=== PATIENT | male | born 1990 | race African-American/Black ===

== ENCOUNTER 2017-03-27 16:22 | Emergency (ER) | payer BC ==
[2017-03-27 16:43] VITALS: BP 129/67; PULSE 63; RESP 18; TEMP 97.8
[2017-03-27] MEDS ORDERED: ACETAMINOPHEN TAB 325 MG TAB PO STA (16:51)
[2017-03-27] MEDS ORDERED: IBUPROFEN 600 MG TAB PO STA (16:51)
--- NOTE | 2017-03-27 17:13 | XR ---
EXAMINATION TYPE: XR ankle complete LT DATE OF EXAM: 03/27/2017 CLINICAL HISTORY: Left ankle pain TECHNIQUE: Frontal, lateral and oblique images of the left ankle are obtained. COMPARISON: None. FINDINGS: There is no acute fracture/dislocation evident in the left ankle. The ankle mortise appea rs within normal limits. Mild focal soft tissue swelling is seen over the lateral malleolus. IMPRESSION: Mild soft tissue swelling over the lateral malleolus with no acute fracture or dislocatio n in the left ankle.
--- NOTE | 2017-03-27 17:22 | ED ---
Lower Extremity Injury HPI - General Chief Complaint: Extremity Injury, Lower Stated Complaint: Left Foot Injury Time Seen by Provider: 03/27/17 16:45 Source: patient Mode of arrival: wheelchair Limitations: no limitations - History of Present Illness Initial Comments: 26-year-old male patient presents to the emergency department today for evaluation of left ankle pain and swelling. Patient states that this started after a slip and fall accident yesterday. He states that it hurts most when he comes to bear weight on the ankle. He is complaining of pain at the left lateral aspect of the ankle just anterior to the lateral malleolus. He denies any numbness or tingling to the foot or leg. He denies hitting his head or losing consciousness during the fall. Denies any other injuries. Patient denies any headache, neck pain, back pain, chest pain, shortness of breath, dizziness, weakness, abdominal pain, nausea, vomiting, or difficulties with bowel movements or urination. - Related Data Previous Rx's Medication Instructions Recorded Ibuprofen [Motrin] 600 mg PO Q8HR PRN #30 tab 03/27/17 Allergies Allergy/AdvReac Type Severity Reaction Status Date / Time No Known Allergies Allergy Unverified 03/27/17 16:43 Review of Systems ROS Statement: Those systems with pertinent positive or pertinent negative responses have been documented in the HPI. ROS Other: All systems not noted in ROS Statement are negative. Past Medical History Past Medical History: No Reported History History of Any Multi-Drug Resistant Organisms: None Reported Additional Past Surgical History / Comment(s): Sx on nose Smoking Status: Current every day smoker Past Alcohol Use History: None Reported General Exam Limitations: no limitations General appearance: alert, in no apparent distress, other (This is a well- developed, well-nourished adult male patient in no acute distress. Vital signs upon presentation were temperature 97.8F, pulse 63, respirations 18, blood pressure 129/67, pulse ox 98% on room air.) Head exam: Present: atraumatic, normocephalic, normal inspection Eye exam: Present: normal appearance, PERRL, EOMI. Absent: scleral icterus, conjunctival injection, periorbital swelling ENT exam: Present: normal exam, normal oropharynx, mucous membranes moist Neck exam: Present: normal inspection, full ROM, other (Nontender, no step-off, no deformity to firm midline palpation of the posterior cervical spine. Full range of motion without pain or limitation.). Absent: tenderness, meningismus, lymphadenopathy Respiratory exam: Present: normal lung sounds bilaterally. Absent: respiratory distress, wheezes, rales, rhonchi, stridor Cardiovascular Exam: Present: regular rate, normal rhythm, normal heart sounds. Absent: systolic murmur, diastolic murmur, rubs, gallop, clicks GI/Abdominal exam: Present: soft, normal bowel sounds. Absent: distended, tenderness, guarding, rebound, rigid Extremities exam: Present: full ROM, tenderness (Tenderness over the lateral aspect of the left ankle, just anterior to the left lateral malleolus. No fifth metatarsal tenderness noted.), normal capillary refill, other (There is some minor swelling surrounding the left ankle. Skin is otherwise normal for ethnicity, warm, and dry. Cap refills less than 3 seconds. Pedal and posttibial pulses are 2+ and equal bilaterally.). Absent: normal inspection, pedal edema, joint swelling, calf tenderness Back exam: Present: normal inspection. Absent: vertebral tenderness Neurological exam: Present: alert, oriented X3, CN II-XII intact Psychiatric exam: Present: normal affect, normal mood Skin exam: Present: warm, dry, intact, normal color. Absent: rash Course Vital Signs 03/27/17 16:35 Temperature 97.8 F Pulse Rate 63 Respiratory 18 Rate Blood Pressure 129/67 O2 Sat by Pulse 98 Oximetry Medical Decision Making - Medical Decision Making 26-year-old male patient presented to the emergency department today for evaluation of left ankle pain and swelling. Physical examination did reveal some tenderness over the left lateral ankle. Some soft tissue swelling surrounding the left lateral malleolus. Distal pulses are intact. Neurovascular status was intact. X-ray was obtained and showed no acute fracture or dislocation. Patient will be discharged home at this time with diagnosis of ankle sprain. We'll apply an ankle stirrup splint. He is instructed to rest, ice, elevate the extremity. He is instructed to have repeat x-rays performed in 7-10 days if his symptoms do not improve. He is instructed to return here immediately for any new, worsening, or concerning symptoms. He verbalizes understanding and agrees with this plan. - Radiology Data Radiology results: report reviewed, image reviewed 3 views of the left ankle are obtained and showed no acute fracture or dislocation. Ankle mortise appears within normal limits. Mild focal soft tissue swelling is seen over the lateral malleolus. Impression by Dr. Ngo shows mild soft tissue swelling over the lateral malleolus with no acute fracture dislocation of the left ankle. Disposition Clinical Impression: Left ankle sprain Disposition: HOME SELF-CARE Condition: Good Instructions: Ankle Sprain (ED) Additional Instructions: Rest, ice, and elevate the extremity. Apply ice 20 minutes at a time at least 4 times daily. Use splint for comfort. Take I Profen and Tylenol for pain control. Follow-up with orthopedics if her symptoms do not improve over the next 7-10 days. Return here immediately for any new, worsening, or concerning symptoms. Prescriptions: Ibuprofen [Motrin] 600 mg PO Q8HR PRN #30 tab PRN Reason: Pain Referrals: Kenzie Ziegler MD [Primary Care Provider] - 1-2 days Sabino Morales DO [Doctor of Osteopathic Medicine] - 1-2 days Time of Disposition: 17:22
== END 2017-03-27 17:38 | disposition home or self-care (01) ==
LOC: EC 16:22
DX: S93.402A Sprain of unspecified ligament of left ankle, initial encounter (principal); F17.200 Nicotine dependence, unspecified, uncomplicated; W01.0XXA Fall on same level from slipping, tripping and stumbling without subsequent striking against object, initial encounter
CPT/HCPCS: 73610; 99283; 29515; L4350

== ENCOUNTER 2017-06-13 20:56 | Emergency (ER) | payer BC ==
[2017-06-13 21:02] VITALS: BP 154/91; PULSE 93; RESP 16; TEMP 97.9
--- NOTE | 2017-06-13 21:25 | ED ---
General Adult HPI - General Chief complaint: Skin/Abscess/Foreign Body Stated complaint: Cyst Time Seen by Provider: 06/13/17 21:06 Source: patient, RN notes reviewed Mode of arrival: ambulatory Limitations: no limitations - History of Present Illness Initial comments: 27-year-old male presents to the emergency 5 in with chief complaint of abscess to the left gluteal area. History of this 7 years ago and did have to have it surgically removed. He states it flared up about a week ago. He states it's been draining and bleeding. He states that due to his continued pain he thought that he should be seen. We did discuss that is painful and drainage. He denies any history of MRSA that he is aware of.Patient denies any recent fever, chills, shortness of breath, chest pain, back pain, abdominal pain, nausea vomiting, numbness or tingling, dysuria or hematuria, constipation or diarrhea, headaches or visual changes, or any other current symptoms. - Related Data Previous Rx's Medication Instructions Recorded Sulfamethox-Tmp 800-160Mg [Bactrim 2 each PO Q12HR #56 tab 06/13/17 DS 800-160 mg] Allergies Allergy/AdvReac Type Severity Reaction Status Date / Time No Known Allergies Allergy Unverified 06/13/17 21:02 Review of Systems ROS Statement: Those systems with pertinent positive or pertinent negative responses have been documented in the HPI. ROS Other: All systems not noted in ROS Statement are negative. Past Medical History Past Medical History: No Reported History History of Any Multi-Drug Resistant Organisms: MRSA Date of last positivie culture/infection: 2010 MDRO Source:: bilateral legs Additional Past Surgical History / Comment(s): Sx on nose. anal fistula. Past Psychological History: No Psychological Hx Reported Smoking Status: Current every day smoker Past Alcohol Use History: Occasional Past Drug Use History: Marijuana General Exam Limitations: no limitations General appearance: alert, in no apparent distress Eye exam: Present: normal appearance, PERRL, EOMI. Absent: scleral icterus, conjunctival injection, periorbital swelling ENT exam: Present: normal exam, mucous membranes moist Respiratory exam: Present: normal lung sounds bilaterally. Absent: respiratory distress, wheezes, rales, rhonchi, stridor Cardiovascular Exam: Present: regular rate, normal rhythm, normal heart sounds. Absent: systolic murmur, diastolic murmur, rubs, gallop, clicks Rectal exam: Present: normal inspection, other (Left gluteal abscess). Absent: hemorrhoids Back exam: Present: normal inspection Neurological exam: Present: alert, oriented X3 Skin exam: Present: warm, dry, intact Course Vital Signs 06/13/17 20:58 Temperature 97.9 F Pulse Rate 93 Respiratory 16 Rate Blood Pressure 154/91 O2 Sat by Pulse 98 Oximetry Procedures - Procedures Initial comment: Procedure: Incision and drainage The skin overlying the abscess was prepped with Betadine, and anesthetized with 1% lidocaine without epinephrine. A #11 scalpel was then used to incise the abscess. Some purulent material was then extracted from the lesion. Wound culture obtained. Gauze dressing placed on top, The patient tolerated the procedure well. Medical Decision Making - Medical Decision Making 27-year-old male presents with left gluteal abscess. This time he underwent drainage. We will start him on antibiotics. We discussed return parameters and follow-up and all questions. Patient stated that he understood and he is agreement this plan. All questions have been answered. They will be discharged. Disposition Clinical Impression: Abscess, gluteal, left Disposition: HOME SELF-CARE Condition: Stable Instructions: Abscess (ED) Additional Instructions: Please use medication as discussed. Please follow up with family doctor if symptoms have not improved over the next two days. Please return to the emergency room if your symptoms increase or worsen or for any other concerns. Prescriptions: Sulfamethox-Tmp 800-160Mg [Bactrim DS 800-160 mg] 2 each PO Q12HR #56 tab Referrals: Kenzie Ziegler MD [Primary Care Provider] - 1-2 days Time of Disposition: 21:25
== END 2017-06-13 21:30 | disposition home or self-care (01) ==
LOC: EC 20:56
DX: L02.31 Cutaneous abscess of buttock (principal); F17.200 Nicotine dependence, unspecified, uncomplicated; Z86.14 Personal history of Methicillin resistant Staphylococcus aureus infection
CPT/HCPCS: 10060; 87070; 87205; 99283

== ENCOUNTER 2017-08-01 10:41 | Day surgery (SDC) | payer BC ==
[2017-07-28 15:33] VITALS: BMI 23.4
[~2017-08-01 10:41] MED LIST: DEXAMETHASONE SOD PHOSPHATE 10 MG/ML 1 ML VIAL IV ONE; HEPARIN SODIUM,PORCINE 5,000 UNIT/ML 1 ML VIAL SQ ONE; LACTATED RINGERS 1,000 ML IV SCH; LIDOCAINE 1% 20 ML VIAL (10MG/ML) FOR IV START INTRADERMA PRN; MORPHINE SULFATE 4 MG/ML SYRINGE IV PRN; ONDANSETRON 4 MG/2 ML VIAL IVP ONE; Pre Op ABX Message 1 EACH MISC MISCELLANE ONE
[2017-08-01 11:54] VITALS: RESP 16; TEMP 97.2
--- NOTE | 2017-08-01 12:30 | P.GSHP ---
History of Present Illness H&P Date: 08/01/17 Chief Complaint: Perirectal abscess This a 27-year-old male who's had issues with a chronic perirectal abscess. Patient presents today for internal drainage of perirectal abscess. Past Medical History Past Medical History: No Reported History History of Any Multi-Drug Resistant Organisms: MRSA Date of last positivie culture/infection: 2010 MDRO Source:: bilateral legs Additional Past Surgical History / Comment(s): Sx on nose. anal fistula. Past Anesthesia/Blood Transfusion Reactions: No Reported Reaction Smoking Status: Current every day smoker Medications and Allergies Home Medications Medication Instructions Recorded Confirmed Type No Known Home Medications [No 07/28/17 07/28/17 History Known Home Medications] Allergies Allergy/AdvReac Type Severity Reaction Status Date / Time No Known Allergies Allergy Verified 07/28/17 14:19 Surgical - Exam Vital Signs Temp Pulse Resp BP Pulse Ox 97.2 F L 60 16 124/82 98 08/01/17 11:49 08/01/17 11:49 08/01/17 11:49 08/01/17 11:49 08/01/17 11:49 - General well developed, no distress - Eyes PERRL - ENT normal pinna - Neck no masses - Respiratory normal expansion - Cardiovascular Rhythm: regular - Abdomen Abdomen: soft, non tender - Rectum Left perirectal abscess Assessment and Plan Assessment: Chronic left perirectal abscess. We'll perform incision drainage.
[2017-08-01] MEDS ORDERED: fentaNYL (PF) 50 MCG/ML 2 ML AMP ONE (12:59)
[2017-08-01] MEDS ORDERED: PROPOFOL 10 MG/ML 20 ML VIAL IV ONE (12:59)
[2017-08-01] MEDS ORDERED: MIDAZOLAM 2 MG/2 ML VIAL ONE (12:59)
[2017-08-01] MEDS ORDERED: SODIUM CHLORIDE 0.9% 50 ML with ceFAZolin 2,000 MG IV ONE ×2 (13:05)
[2017-08-01] MEDS ORDERED: LIDOCAINE 1%-EPI 1:100,000 30 ML VIAL SQ ONE ×2 (13:11)
[2017-08-01 14:05] VITALS: BP 107/64; PULSE 56
--- NOTE | 2017-08-01 15:27 | P.OP ---
Date of Procedure: 08/01/17 Preoperative Diagnosis: left perirectal abscess Postoperative Diagnosis: Left perirectal abscess Procedure(s) Performed: Incision and debridement of left perirectal abscess Anesthesia: MAC Surgeon: Conner Schafer Pathology: none sent Condition: stable Disposition: PACU Description of Procedure: Patient's placed on the operating table in the prone jackknife position. He received IV sedation. His perianal area was prepped and draped usual sterile fashion. The patient had a left side. Rectal abscess. The abscess was probed there appeared to be no evidence of any communication with the rectum. At this point the skin was debrided with a 15 blade. And then the subcutaneous tissues were excised using a 15 blade and electrocautery. The wound was then packed with wet-to-dry gauze dressing. Patient top procedure well and was sent to recovery room stable condition.
== END 2017-08-01 14:22 | disposition home or self-care (01) ==
LOC: OR 10:41
PROVIDERS: ATTEND Surgery
DX: K61.1 Rectal abscess (principal); Z86.14 Personal history of Methicillin resistant Staphylococcus aureus infection; F17.200 Nicotine dependence, unspecified, uncomplicated
CPT/HCPCS: 46040; J2250; J1644; J1100; J2405; J3010; J0690; J2704

== ENCOUNTER 2020-08-14 17:21 | Emergency (ER) | payer BC, OTHER ==
[2020-08-14 17:31] VITALS: BP 120/66; PULSE 96; RESP 18; TEMP 98.7
--- NOTE | 2020-08-14 18:10 | XR ---
Right hand HISTORY: Trauma to second digit 2 weeks prior, pain 3 views of the right hand Bone mineralization, joint spaces, alignment are maintained. There is a small ossific density present at the volar aspect of the proximal portion of the proximal phalanx, metacarpophalangeal joint of th e second digit seen on the lateral view. IMPRESSION: Correlate for point tenderness at the volar aspect of the second metacarpophalangeal join t No other radiographically apparent fracture or dislocation.
--- NOTE | 2020-08-14 18:36 | ED ---
Upper Extremity HPI - General Chief Complaint: Extremity Injury, Upper Stated Complaint: Rt Pointer Finger Injury Time Seen by Provider: 08/14/20 17:26 Source: patient Mode of arrival: ambulatory Limitations: no limitations - History of Present Illness Initial Comments: Patient is a 30-year-old male presenting to the emergency Department with complaints of pain in his right index finger for the past 2 weeks. Patient states while he was at work, he jammed his right index finger straight into a door. He states over the last 2 weeks he continues to have pain of the IP joint. He was concerned for fracture wanted to be evaluated. He denies any other complaints or any further injuries. - Related Data Previous Rx's Medication Instructions Recorded Docusate [Colace] 100 mg PO BID #20 capsule 08/01/17 HYDROcodone/APAP 7.5-325MG [[place] 1 each PO Q4H PRN #30 tab 08/01/17 7.5] Allergies Allergy/AdvReac Type Severity Reaction Status Date / Time No Known Allergies Allergy Verified 08/14/20 17:31 Review of Systems ROS Statement: Those systems with pertinent positive or pertinent negative responses have been documented in the HPI. ROS Other: All systems not noted in ROS Statement are negative. Past Medical History Past Medical History: No Reported History History of Any Multi-Drug Resistant Organisms: MRSA Date of last positivie culture/infection: 2010 MDRO Source:: bilateral legs Additional Past Surgical History / Comment(s): Sx on nose. anal fistula. Past Anesthesia/Blood Transfusion Reactions: No Reported Reaction Past Psychological History: No Psychological Hx Reported Smoking Status: Current every day smoker Past Alcohol Use History: Occasional Past Drug Use History: Marijuana General Exam - General Exam Comments Initial Comments: GENERAL: Patient is well-developed and well-nourished. Patient is nontoxic and in no acute distress. HEAD: Atraumatic, normocephalic. EYES: Pupils equal round and reactive to light, extraocular movements intact, sclera anicteric, conjunctiva are normal. Eyelids were unremarkable. ENT: Nares patent, oropharynx clear without exudates. Moist mucous membranes. NECK: Normal range of motion, supple without lymphadenopathy or JVD. LUNGS: Unlabored respirations. Breath sounds clear to auscultation bilaterally and equal. No wheezes rales or rhonchi. HEART: Regular rate and rhythm without murmurs, rubs or gallops. ABDOMEN: Soft, nontender, normoactive bowel sounds. : Deferred MUSCULOSKELETAL: Patient has full active range of motion of his right fingers, he does have some mild pain with full flexion of his right index finger. He has some mild tenderness of the IP joint. Neurovascular intact, no swelling or deformity. No clubbing or cyanosis. SKIN: Warm, Dry, normal turgor, no rashes or lesions noted. Limitations: no limitations Course Vital Signs 08/14/20 08/14/20 17:28 18:39 Temperature 98.7 F 98.7 F Pulse Rate 96 96 Respiratory 18 18 Rate Blood Pressure 120/66 120/66 O2 Sat by Pulse 97 97 Oximetry Medical Decision Making - Medical Decision Making Patient is a 30-year-old male here for pain of his right index finger for the last 2 weeks. His pain is located at the proximal IP joint. X-rays today show a small ossified density at the proximal portion of the proximal phalanx. No other apparent fractures dislocations. Patient does not seem to be tender in this area. This could be an old injury. I discussed with patient this is most likely a sprain of the joint. If symptoms persist he can follow up with orthopedics otherwise he is stable for discharge. He is in agreement with this plan of care. Disposition Clinical Impression: Sprain of right index finger Disposition: HOME SELF-CARE Condition: Stable Instructions (If sedation given, give patient instructions): Finger Sprain (ED) Additional Instructions: Please return to the Emergency Department if symptoms worsen or any other concerns. Follow-up with orthopedics in 2-3 weeks if symptoms persist. Is patient prescribed a controlled substance at d/c from ED?: No Referrals: Kenzie Ziegler MD [Primary Care Provider] - 1-2 days Nikita Mays MD [STAFF PHYSICIAN] - 1-2 days Time of Disposition: 18:36
== END 2020-08-14 18:39 | disposition home or self-care (01) ==
LOC: EC 17:21
DX: S63.610A Unspecified sprain of right index finger, initial encounter (principal); F17.200 Nicotine dependence, unspecified, uncomplicated; W23.0XXA Caught, crushed, jammed, or pinched between moving objects, initial encounter; Y92.89 Other specified places as the place of occurrence of the external cause; Y99.0 Civilian activity done for income or pay
CPT/HCPCS: 99283

== ENCOUNTER 2020-10-05 14:21 | Emergency (ER) | payer OTHER ==
[2020-10-05 14:29] VITALS: BP 122/85; PULSE 93; RESP 16; TEMP 97.4
--- NOTE | 2020-10-05 14:52 | XR ---
EXAMINATION TYPE: XR hand complete RT DATE OF EXAM: 10/05/2020 COMPARISON: NONE HISTORY: Pain TECHNIQUE: 3 views FINDINGS: I see no fracture nor dislocation. Joint spaces are normal. There are no pathologic calcifi cations. IMPRESSION: Negative right hand exam. No fracture.
[2020-10-05] MEDS ORDERED: KETOROLAC 15 MG/ML 1 ML VIAL IM STA (14:55)
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
== END 2020-10-05 15:15 | disposition home or self-care (01) ==
LOC: EC 14:21
DX: S60.221A Contusion of right hand, initial encounter (principal); F17.200 Nicotine dependence, unspecified, uncomplicated; X58.XXXA Exposure to other specified factors, initial encounter
CPT/HCPCS: 99283; 96372; 73130; J1885

== ENCOUNTER 2023-09-18 04:27 | Emergency (ER) | payer OTHER ==
[2023-09-18] MEDS: HYDROmorphone 0.5 MG/0.5 ML SYRINGE IVP STA (04:35)
[2023-09-18 04:37] VITALS: BP 129/58; PULSE 116; RESP 20; TEMP 97.8
[2023-09-18] MEDS: DIPH,PERTUS(ACELL)TETVAC-LF 0.5 ML VIAL IM ONE (04:44)
[2023-09-18] MEDS: HYDROmorphone 1 MG/ML 1 ML SYRINGE IVP STA ×2 (04:51→05:32)
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
[2023-09-18 05:09] LABS: ALT 52 U/L (4-49); AST 35 U/L (17-59); African American GFR (CKD) 79 (>60 ml/min/1.73 sqM); Albumin 4.6 g/dL (3.5-5.0); Alkaline Phosphatase 61 U/L (38-126); Anion Gap 24 mmol/L; Blood Urea Nitrogen 17 mg/dL (9-20); Chloride 110 mmol/L (98-107); Glucose 164 mg/dL (74-99); Non-African American GFR(CKD) 68 (>60 ml/min/1.73 sqM); Potassium 3.8 mmol/L (3.5-5.1); Sodium 142 mmol/L (137-145); Total Bilirubin 0.4 mg/dL (0.2-1.3); Total Protein 7.3 g/dL (6.3-8.2)
[2023-09-18 05:12] LABS: Prothrombin Time 10.7 sec (10.0-12.5)
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
[2023-09-18 05:17] LABS: Alcohol 231 mg/dL; Carbon Dioxide 8 mmol/L (22-30)
[2023-09-18 05:19] LABS: HCT 44.1 % (39.0-53.0); HGB 14.1 gm/dL (13.0-17.5); MCH 29.3 pg (25.0-35.0); MCHC 31.9 g/dL (31.0-37.0); MCV 91.7 fL (80.0-100.0); Mean Platelet Volume 7.4; Platelet Count 357 k/uL (150-450); RBC 4.81 m/uL (4.30-5.90); RDW 13.1 % (11.5-15.5)
[2023-09-18 05:23] LABS: Partial Thromboplastin Time 21.7 sec (22.0-30.0)
[2023-09-18 05:45] LABS: Lymphocytes # (M) 4.08 k/uL (1.0-4.8); Monocytes # (M) 0.96 k/uL (0-1.0); Neutrophils # (M) 6.96 k/uL (1.3-7.7); Neutrophils % (M) 58 %; Nucleated Red Blood Cells 0 /100 WBC (0-0); Total Cells Counted 100
[2023-09-18 07:08] LABS: Amphetamine Screen,Urine Not Detected (NotDetected); Barbiturate Screen,Urine Not Detected (NotDetected); Benzodiazepines Screen,Urine Not Detected (NotDetected); Cocaine Screen,Urine Not Detected (NotDetected); Methadone Screen, Urine Not Detected (NotDetected); Opiate Screen,Urine Not Detected (NotDetected); Oxycodone Screen, Urine Not Detected (NotDetected); Phencyclidine Screen,Urine Not Detected (NotDetected); Tricyclic Antidepressant,Urine Not Detected (NotDetected); Urn Cannabinoid Scrn Detected (NotDetected)
== END 2023-09-18 05:33 | disposition other institution (70) ==
LOC: EC 04:27
DX: S72.91XA Unspecified fracture of right femur, initial encounter for closed fracture (principal); F17.200 Nicotine dependence, unspecified, uncomplicated; I45.10 Unspecified right bundle-branch block; F12.90 Cannabis use, unspecified, uncomplicated; Z23 Encounter for immunization; W34.00XA Accidental discharge from unspecified firearms or gun, initial encounter
CPT/HCPCS: 29505; 96365; 96375; 96376; 90471; 36415; 93005; 86900; 86901; 80053; 85025; 85610; 85730; 86850; 80306; 72170; 73552; 71045; 90715; 99291; G0480; J0690; J1170 ×2; 80320

== ENCOUNTER → 2023-10-18 | Outpatient (CLI) | payer BC | END | disposition home or self-care (01) | LOC: LABPRL 12:34 | DX: K92.2 Gastrointestinal hemorrhage, unspecified (principal) | CPT/HCPCS: 85025 ==

== ENCOUNTER 2024-04-04 11:57 | Emergency (ER) | payer BC, OTHER ==
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
[2024-04-04] MEDS: SODIUM CHLORIDE 0.9% 1,000 ML IV ONE (12:59)
[2024-04-04] MEDS: ONDANSETRON 4 MG/2 ML VIAL IVP STA (13:01)
[2024-04-04] MEDS: PANTOPRAZOLE 40 MG/10 ML VIAL IVP STA (13:01)
[2024-04-04 13:23] LABS: Basophils % (A) 0 %; Eosinophils # (A) 0.5 k/uL (0-0.7); Eosinophils % (A) 7 %; HCT 46.4 % (39.0-53.0); HGB 15.1 gm/dL (13.0-17.5); Lymphocytes % (A) 15 %; MCH 27.2 pg (25.0-35.0); MCHC 32.7 g/dL (31.0-37.0); MCV 83.2 fL (80.0-100.0); Mean Platelet Volume 6.5; Monocytes # (A) 0.4 k/uL (0-1.0); Monocytes % (A) 6 %; Neutrophils # (A) 4.8 k/uL (1.3-7.7); Neutrophils % (A) 70 %; Platelet Count 286 k/uL (150-450); RBC 5.58 m/uL (4.30-5.90); RDW 14.9 % (11.5-15.5); WBC 6.9 k/uL (3.8-10.6)
[2024-04-04 13:25] LABS: Appearance,Urine Clear (Clear); Bilirubin,Urine Negative (Negative); Blood,Urine Negative (Negative); Color,Urine Yellow; Glucose,Urine (UA) Negative (Negative); Ketones,Urine Trace (Negative); Leukocyte Esterase,Urine Negative (Negative); Mucus,Urine Many /hpf; Nitrite,Urine Negative (Negative); Protein,Urine 1+ (Negative); RBC,Urine 1 /hpf (0-5); Specific Gravity,Urine 1.041 (1.001-1.035); WBC,Urine 1 /hpf (0-5)
[2024-04-04 13:32] LABS: ALT 33 U/L (4-49); AST 24 U/L (17-59); African American GFR (CKD) >90 (>60 ml/min/1.73 sqM); Albumin 4.5 g/dL (3.5-5.0); Alkaline Phosphatase 81 U/L (38-126); Anion Gap 12 mmol/L; Blood Urea Nitrogen 20 mg/dL (9-20); Calcium 9.4 mg/dL (8.4-10.2); Carbon Dioxide 23 mmol/L (22-30); Chloride 102 mmol/L (98-107); Glucose 122 mg/dL (74-99); Lipase 105 U/L (23-300); Non-African American GFR(CKD) >90 (>60 ml/min/1.73 sqM); Potassium 4.1 mmol/L (3.5-5.1); Sodium 137 mmol/L (137-145); Total Bilirubin 0.5 mg/dL (0.2-1.3); Total Protein 7.7 g/dL (6.3-8.2)
--- NOTE | 2024-04-04 13:48 | CT ---
EXAMINATION TYPE: CT abdomen pelvis wo con DATE OF EXAM: 04/04/2024 1:37 PM COMPARISON: None CLINICAL INDICATION: Male, 33 years old with history of blood in stool; Abdominal pain, diarrhea, blo od in stool TECHNIQUE: Axial CT abdomen pelvis wo con;Sagittal and coronal reformats were created on a separate workstation. Contrast used: mL of , (none if empty) Oral contrast used: without Oral Contrast (none if empty) CT DLP: 636.6 mGycm, Automated exposure control for dose reduction was used. FINDINGS: LOWER CHEST: Unremarkable ABDOMEN LIVER: Unremarkable GALLBLADDER AND BILE DUCTS: Unremarkable. PANCREAS: Unremarkable. SPLEEN: Unremarkable. ADRENAL GLANDS: Unremarkable. KIDNEYS AND URETERS: No evidence of hydronephrosis or renal calculus. The ureters are unremarkable. PELVIS BLADDER: No evidence for wall thickening or mass given limitations of exam. REPRODUCTIVE: Unremarkable. ABDOMEN & PELVIS STOMACH AND BOWEL: No evidence of bowel obstruction. The appendix is normal. Submucosal fat depositio n. No evidence for suspicious finding to suggest gastrointestinal hemorrhage on this noncontrast exam . PERITONEUM/RETROPERITONEUM: No evidence of pneumoperitoneum or free fluid. VASCULATURE: No evidence of aortic aneurysm. MUSCULOSKELETAL: No acute osseous abnormalities, right hip fixation hardware appears intact. LYMPH NODES: No gross evidence for lymphadenopathy. SOFT TISSUE/ABDOMINAL WALL: Fat-containing umbilical hernia. IMPRESSION: No evidence for gastrointestinal hemorrhage on this noncontrast exam. [facility], , 04/04/2024 1:46 PM
[2024-04-04 14:56] VITALS: BP 110/74; PULSE 79; RESP 18; TEMP 98.2
== END 2024-04-04 14:56 | disposition home or self-care (01) ==
LOC: EC 11:57
DX: K29.70 Gastritis, unspecified, without bleeding (principal); K21.9 Gastro-esophageal reflux disease without esophagitis; F17.200 Nicotine dependence, unspecified, uncomplicated
CPT/HCPCS: 36415; 80053; 83605; 83690; 85025; 81001; 74176; 99284; 96374; 96375; 96361; J2405; J2470